=== PATIENT | female | born 1960 | race Hispanic/Latino ===

== ENCOUNTER 2022-07-24 13:39 | Inpatient (IN) | payer BC, OTHER ==
[~2022-07-24] VITALS: Ht 160 cm; Wt 80.6 kg
[2022-07-24 14:23] LABS: BASOPHILS % (AUTO) 0.5 % (0.0-5.0); EOSINOPHILS % (AUTO) 0.5 % (0.0-8.0); HEMATOCRIT 42.7 % (36-48); LYMPHOCYTES % (AUTO) 9.6 % (21.0-51.0); MEAN CORPUSCULAR HGB CONC 32.8 g/dL (32.0-36.0); MEAN CORPUSCULAR VOLUME 82.3 fL (79-99); MONOCYTES % (AUTO) 5.8 % (3.0-13.0); NEUTROPHILS % (AUTO) 83.3 % (40.0-77.0); PLATELET COUNT (AUTO) 313 K/uL (130-400); RED BLOOD CELL COUNT(AUTO) 5.19 MIL/uL (4.00-5.50); RED CELL DISTRIBUTION WIDTH 14.1 % (11.0-15.5); WHITE BLOOD COUNT (AUTO) 14.7 K/uL (4.8-10.8)
[2022-07-24 14:26] LABS: APPEARANCE,URINE SL CLOUDY (CLEAR); BILIRUBIN,URINE NEGATIVE (NEGATIVE); COLOR,URINE YELLOW (YELLOW); GLUCOSE, URINE (UA) NEGATIVE (NEGATIVE); KETONES,URINE NEGATIVE (NEGATIVE); LEUKOCYTE ESTERASE ,URINE MODERATE (NEGATIVE); NITRATE,URINE NEGATIVE (NEGATIVE); OCCULT BLOOD,URINE TRACE-INTACT (NEGATIVE); PROTEIN,URINE NEGATIVE (NEGATIVE); UROBILINOGEN,URINE 0.2 mg/dL (0.2-1.0)
[2022-07-24] MEDS ORDERED: 0.9%NACL 1000ML 1,000 ML IV ONE (14:30)
[2022-07-24] MEDS ORDERED: ACETAMINOPHEN 325 MG TAB PO ONE (14:30)
[2022-07-24 14:31] LABS: BACTERIA,URINE Rare /HPF (None Seen); SQUAMOUS EPITHELIAL CELL,UR Rare /HPF (0-2); TRANSITIONAL EPI CELLS,URINE Rare /HPF (None Seen)
[2022-07-24 14:37] LABS: CREATININE 0.9 mg/dL (0.5-1.5); TOTAL PROTEIN, SERUM 8.6 g/dL (6.0-8.3)
[2022-07-24 14:42] LABS: POTASSIUM 2.7 mmol/L (3.5-5.1)
[2022-07-24] MEDS ORDERED: KETOROLAC 30MG VIAL (30MG/ML) IVP ONE (15:30)
[2022-07-24] MEDS ORDERED: ZOSYN 3.375GM +NS 50ML IV ONE (15:30)
[2022-07-24] MEDS ORDERED: ONDANSETRON 4MG INJ IVP ONE (15:30)
[2022-07-24] MEDS ORDERED: POTASSIUM BICARB/CIT AC 25 MEQ TABLET.EFF PO ONE (15:30)
[2022-07-24] MEDS ORDERED: DiphenhydrAMINE HCL 50 MG/ML VIAL IV ONE (16:30)
[2022-07-24] MEDS ORDERED: FAMOTIDINE 20MG VIAL IV ONE (16:30)
[2022-07-24] MEDS ORDERED: IOHEXOL 350 MG/ML 100ML INFUS..BTL IV ONE (18:25)
[2022-07-24] MEDS ORDERED: FENTANYL CITRATE PF 50 MCG/1 ML 2ML VIAL IVP ONE (19:30)
[2022-07-24] MEDS ORDERED: CLONIDINE HCL 0.1 MG TABLET PO PRN (20:00)
[2022-07-24] MEDS ORDERED: LABETALOL 20MG SYG IV PRN (20:00)
[2022-07-24] MEDS ORDERED: LACTULOSE 20 GM/30 ML UDCUP PO PRN (20:00)
[2022-07-24] MEDS ORDERED: HYDRALAZINE 20MG/ML VIAL IV PRN (20:00)
[2022-07-24] MEDS ORDERED: TEMAZEPAM 15 MG CAPSULE PO PRN (20:00)
[2022-07-24] MEDS ORDERED: KETOROLAC 30MG VIAL (30MG/ML) IVP PRN (20:30)
[2022-07-24] MEDS: 0.9%NACL 1000ML 1,000 ML IV SCH (20:48)
[2022-07-24] MEDS: INSULIN HUMULIN R 100 UNIT/ML 3ML SQ SCH (21:00)
[2022-07-24] MEDS: METRONIDAZOLE 500MG/100ML BAG 100 ML IVPB SCH (22:07)
[2022-07-24 23:35] VITALS: BP 118/71
[2022-07-25] MEDS ORDERED: HYDR25TA PO (00:24)
[2022-07-25] MEDS ORDERED: LEVO75TA4 PO (00:24)
[2022-07-25] MEDS ORDERED: PSYL1CAP2 PO (00:24)
[2022-07-25] MEDS ORDERED: DOCU-116 PO (00:24)
[2022-07-25] MEDS: ACETAMINOPHEN 325 MG TAB PO PRN (02:17)
[2022-07-25 04:18] VITALS: BP 126/59
[2022-07-25] MEDS: METRONIDAZOLE 500MG/100ML BAG 100 ML IVPB SCH ×3 (05:04→20:52)
[2022-07-25 05:20] LABS: HEMATOCRIT 32.5 % (36-48); MEAN CORPUSCULAR HEMOGLOBIN 26.8 pg (27.0-33.0); MEAN CORPUSCULAR HGB CONC 32.6 g/dL (32.0-36.0); MEAN CORPUSCULAR VOLUME 82.3 fL (79-99); RED BLOOD CELL COUNT(AUTO) 3.95 MIL/uL (4.00-5.50); WHITE BLOOD COUNT (AUTO) 10.5 K/uL (4.8-10.8)
[2022-07-25] MEDS: INSULIN HUMULIN R 100 UNIT/ML 3ML SQ SCH ×4 (05:20→20:15)
[2022-07-25 05:34] LABS: MAGNESIUM 1.9 mg/dL (1.80-2.40); PHOSPHORUS 2.6 mg/dL (2.5-4.9)
[2022-07-25 05:50] LABS: POTASSIUM 2.7 mmol/L (3.5-5.1)
[2022-07-25] MEDS ORDERED: LIDOCAINE HCL-MPF 1% 2ML VIAL IV PRN (06:00)
[2022-07-25] MEDS: KCL 20 MEQ ERTAB PO PRN ×3 (06:11→13:12)
[2022-07-25] MEDS: POTASSIUM CHLORIDE 20MEQ/100ML 100 ML IV PRN ×3 (06:11→15:49)
[2022-07-25] MEDS ORDERED: KETOROLAC 15MG/ML VIAL (15MG/ML) IV PRN (06:30)
[2022-07-25] MEDS: ONDANSETRON 4MG INJ IVP PRN ×3 (07:32→23:11)
[2022-07-25 08:00] VITALS: BP 131/79
[2022-07-25] MEDS: ENOXAPARIN SODIUM 30 MG/0.3 ML SQ SCH (09:00)
[2022-07-25] MEDS: LEVOFLOXACIN 750 MG/D5W 150 ML 150 ML IV SCH (09:10)
[2022-07-25] MEDS: 0.9%NACL 1000ML 1,000 ML IV SCH ×2 (09:20→20:24)
[2022-07-25 11:38] VITALS: BP 146/78
[2022-07-25] MEDS: POTASSIUM CHLORIDE 10% ELIXIR 20 MEQ/15 ML UDCUP PO PRN ×2 (14:50→20:19)
[2022-07-25 16:00] VITALS: BP 120/84
[2022-07-25] MEDS ORDERED: LIDOCAINE HCL MPF 1% 5ML VIAL ONE ×2 (16:35→20:07)
[2022-07-25] MEDS ORDERED: PEG 3350/NA SULF,BICARB,CL/KCL 4000 ML SOLN PO SCH (17:00)
[2022-07-25 19:35] VITALS: BP 170/73
[2022-07-25] MEDS ORDERED: CA CARBONATE PO SCH (21:00)
[2022-07-25] MEDS ORDERED: PSYLLIUM HUSK PO SCH (21:00)
[2022-07-25 23:21] VITALS: BP 150/77
[2022-07-26] VITALS (11 sets, daily range): BP systolic 112–155; BP diastolic 65–84
[2022-07-26] MEDS: METRONIDAZOLE 500MG/100ML BAG 100 ML IVPB SCH (05:12)
[2022-07-26] MEDS: ONDANSETRON 4MG INJ IVP PRN ×2 (05:31→08:11)
[2022-07-26] MEDS: INSULIN HUMULIN R 100 UNIT/ML 3ML SQ SCH ×2 (05:31→11:30)
[2022-07-26 05:37] LABS: BASOPHILS % (AUTO) 0.5 % (0.0-5.0); HEMATOCRIT 37.3 % (36-48); LYMPHOCYTES % (AUTO) 19.5 % (21.0-51.0); MEAN CORPUSCULAR HEMOGLOBIN 26.6 pg (27.0-33.0); MEAN CORPUSCULAR HGB CONC 31.6 g/dL (32.0-36.0); MONOCYTES % (AUTO) 6.1 % (3.0-13.0); NEUTROPHILS % (AUTO) 72.5 % (40.0-77.0); PLATELET COUNT (AUTO) 320 K/uL (130-400); RED BLOOD CELL COUNT(AUTO) 4.44 MIL/uL (4.00-5.50); RED CELL DISTRIBUTION WIDTH 14.2 % (11.0-15.5); WHITE BLOOD COUNT (AUTO) 10.1 K/uL (4.8-10.8)
[2022-07-26 05:54] LABS: ALBUMIN 3.3 g/dL (3.5-5.0); POTASSIUM 3.3 mmol/L (3.5-5.1); TOTAL PROTEIN, SERUM 7.7 g/dL (6.0-8.3)
[2022-07-26] MEDS ORDERED: LEVOTHYROXINE 75 MCG TABLET PO SCH (06:30)
[2022-07-26] MEDS ORDERED: PROPOFOL 10 MG/ML 20ML VIAL IV ONE ×2 (07:00→07:24)
[2022-07-26] MEDS ORDERED: LIDOCAINE PF 100MG/5ML (2%) SYRINGE 5ML ONE (07:00)
[2022-07-26] MEDS: LEVOFLOXACIN 750 MG/D5W 150 ML 150 ML IV SCH (08:55)
[2022-07-26] MEDS: ENOXAPARIN SODIUM 30 MG/0.3 ML SQ SCH (09:00)
[2022-07-26] MEDS ORDERED: HYDROCHLOROTHIAZIDE 25 MG TABLET PO SCH (09:00)
[2022-07-26] MEDS ORDERED: DOCUSATE SODIUM 100 MG CAP PO SCH (09:00)
[2022-07-26] MEDS: POTASSIUM CHLORIDE 10% ELIXIR 20 MEQ/15 ML UDCUP PO PRN ×3 (09:07→14:28)
[2022-07-26] MEDS: 0.9%NACL 1000ML 1,000 ML IV SCH (12:00)
[2022-07-26] MEDS: ACETAMINOPHEN 325 MG TAB PO PRN (12:22)
[2022-07-26] MEDS ORDERED: LEVO750T39 PO (15:54)
[2022-07-26] MEDS ORDERED: POTA20PA32 PO (15:56)
== END 2022-07-26 17:20 | disposition home or self-care (01) | DRG 872 ==
LOC: EDH 13:39 → OBSVTOIN 20:02 → EDHIP 20:02 → 3AH 07-25 00:04
PROVIDERS: ADMIT Internal Medicine; ATTEND Internal Medicine
PROC: 0DBL8ZX Excision of Transverse Colon, Via Natural or Artificial Opening Endoscopic, Diagnostic (ICD-10-PCS; principal; 2022-07-26)
PROC: 0DBL8ZZ Excision of Transverse Colon, Via Natural or Artificial Opening Endoscopic (ICD-10-PCS; 2022-07-26)
DX: A41.9 Sepsis, unspecified organism (principal); K57.30 Diverticulosis of large intestine without perforation or abscess without bleeding; E03.9 Hypothyroidism, unspecified; E87.6 Hypokalemia; I10 Essential (primary) hypertension; Z87.19 Personal history of other diseases of the digestive system; Z88.5 Allergy status to narcotic agent; Z90.710 Acquired absence of both cervix and uterus; Z88.1 Allergy status to other antibiotic agents; Z88.8 Allergy status to other drugs, medicaments and biological substances
CPT/HCPCS: 36415; 45380; 45385; 71045; 74177; 76705; 80048; 80053; 81001; 82948; 83605; 83690; 83735; 84100; 84132; 84484; 85025; 85027; 87040; 87088; 87635; 93005; A4606; G0378; J1200; J1650; J1885; J1956; J2001; J2405; J2543; J2704; J3010; J3480; J3490; J7030; Q9967

== ENCOUNTER 2022-12-05 07:38 | Observation (INO) | payer OTHER ==
[~2022-12-05] VITALS: Ht 160 cm; Wt 75.5 kg
[~2022-12-05 07:38] MED LIST: DOCU-116 PO; HYDR25TA PO; LEVO750T39 PO; LEVO75TA4 PO; POTA20PA32 PO; PSYL1CAP2 PO
[2022-12-05 08:07] LABS: APPEARANCE,URINE CLEAR (CLEAR); BILIRUBIN,URINE NEGATIVE (NEGATIVE); COLOR,URINE YELLOW (YELLOW); GLUCOSE, URINE (UA) NEGATIVE (NEGATIVE); KETONES,URINE 40 mg/dL (NEGATIVE); LEUKOCYTE ESTERASE ,URINE 75 Leu/uL (NEGATIVE); NITRATE,URINE NEGATIVE (NEGATIVE); OCCULT BLOOD,URINE SMALL (NEGATIVE); PH,URINE 6.5 (5.0-8.0); PROTEIN,URINE 30 mg/dL (NEGATIVE); UROBILINOGEN,URINE 0.2 mg/dL (0.2-1.0)
[2022-12-05 08:08] LABS: BASOPHILS % (AUTO) 0.5 % (0.0-5.0); HEMATOCRIT 38.6 % (36-48); LYMPHOCYTES % (AUTO) 9.3 % (21.0-51.0); MEAN CORPUSCULAR HEMOGLOBIN 26.6 pg (27.0-33.0); MEAN CORPUSCULAR HGB CONC 33.7 g/dL (32.0-36.0); MEAN CORPUSCULAR VOLUME 78.9 fL (79-99); MONOCYTES % (AUTO) 7.2 % (3.0-13.0); NEUTROPHILS % (AUTO) 82.7 % (40.0-77.0); PLATELET COUNT (AUTO) 318 K/uL (130-400); RED BLOOD CELL COUNT(AUTO) 4.89 MIL/uL (4.00-5.50); WHITE BLOOD COUNT (AUTO) 11.5 K/uL (4.8-10.8)
[2022-12-05 08:15] LABS: MUCUS,URINE RARE LPF (None Seen); OTHER CASTS, URINE 1 /LPF (None Seen); SQUAMOUS EPITHELIAL CELL,UR FEW /HPF (0-2)
[2022-12-05 08:25] LABS: ALBUMIN 3.6 g/dL (3.5-5.0); CREATININE 0.9 mg/dL (0.5-1.5); TOTAL PROTEIN, SERUM 7.7 g/dL (6.0-8.3)
[2022-12-05] MEDS ORDERED: ONDANSETRON 4MG INJ IVP ONE (08:30)
[2022-12-05] MEDS ORDERED: 0.9%NACL 1000ML 1,000 ML IV ONE (09:00)
[2022-12-05] MEDS ORDERED: PROMETHAZINE HCL 25 MG/ML 1ML AMPULE IM ONE (09:00)
[2022-12-05] MEDS ORDERED: POTASSIUM BICARB/CIT AC 25 MEQ TABLET.EFF PO ONE (09:00)
[2022-12-05] MEDS ORDERED: IOHEXOL 350 MG/ML 100ML INFUS..BTL IV ONE (09:31)
[2022-12-05] MEDS ORDERED: LIDOCAINE HCL-MPF 1% 2ML VIAL IV PRN (10:30)
[2022-12-05] MEDS ORDERED: ALBUTEROL 0.083% 2.5 MG/3 ML INH IH PRN (10:30)
[2022-12-05] MEDS ORDERED: POTASSIUM CHLORIDE 10MEQ/100ML 100 ML IV PRN (10:30)
[2022-12-05] MEDS ORDERED: ONDANSETRON 4MG INJ IVP PRN (10:30)
[2022-12-05] MEDS ORDERED: ACETAMINOPHEN 650 MG SUPPOSITORY RC PRN (10:30)
[2022-12-05] MEDS ORDERED: DOCUSATE SODIUM 100 MG CAP PO PRN (10:30)
[2022-12-05] MEDS ORDERED: LACTULOSE 20 GM/30 ML UDCUP PO PRN (10:30)
[2022-12-05] MEDS: LACTATED RINGERS 1000ML 1,000 ML IV SCH ×2 (10:42→19:18)
[2022-12-05] MEDS ORDERED: OMEP20TA20 PO (10:44)
[2022-12-05] MEDS: INSULIN HUMULIN R 100 UNIT/ML 3ML SQ SCH ×3 (11:30→21:00)
[2022-12-05 13:03] VITALS: BP 158/89
[2022-12-05] MEDS ORDERED: METRONIDAZOLE 500MG/100ML BAG 100 ML IVPB SCH ×2 (14:00)
[2022-12-05] MEDS ORDERED: KCL 20 MEQ ERTAB PO PRN (14:00)
[2022-12-05] MEDS ORDERED: POTASSIUM CHLORIDE 20MEQ/100ML 100 ML IV PRN (14:00)
[2022-12-05 16:00] VITALS: BP 125/69
[2022-12-05] MEDS: POTASSIUM CHLORIDE 10% ELIXIR 20 MEQ/15 ML UDCUP PO PRN ×3 (17:20→23:50)
[2022-12-05] MEDS: ACETAMINOPHEN 325 MG TAB PO PRN (17:20)
[2022-12-05] MEDS: MEROPENEM 1 GM VIAL IVPB SCH ×2 (17:20→20:26)
[2022-12-05] MEDS ORDERED: PHARMACY COMMUNICATION MISC SCH (19:00)
[2022-12-05] MEDS: PROMETHAZINE HCL 25 MG/ML 1ML AMPULE IM PRN (20:11)
[2022-12-05] MEDS: FAMOTIDINE 20MG VIAL IV SCH (20:16)
[2022-12-05 21:14] VITALS: BP 136/72
[2022-12-06 00:06] VITALS: BP 120/71
[2022-12-06] MEDS: LACTATED RINGERS 1000ML 1,000 ML IV SCH (04:06)
[2022-12-06] MEDS: PROMETHAZINE HCL 25 MG/ML 1ML AMPULE IM PRN ×2 (04:14→13:17)
[2022-12-06] MEDS: MEROPENEM 1 GM VIAL IVPB SCH ×3 (04:38→20:46)
[2022-12-06 04:41] VITALS: BP 121/66
[2022-12-06 05:11] LABS: MEAN CORPUSCULAR HEMOGLOBIN 26.5 pg (27.0-33.0); MEAN CORPUSCULAR HGB CONC 32.4 g/dL (32.0-36.0); MEAN CORPUSCULAR VOLUME 81.9 fL (79-99); RED BLOOD CELL COUNT(AUTO) 4.15 MIL/uL (4.00-5.50); RED CELL DISTRIBUTION WIDTH 14.6 % (11.0-15.5); WHITE BLOOD COUNT (AUTO) 6.8 K/uL (4.8-10.8)
[2022-12-06 05:33] LABS: CREATININE 0.8 mg/dL (0.5-1.5); PHOSPHORUS 2.4 mg/dL (2.5-4.9); POTASSIUM 3.7 mmol/L (3.5-5.1); THYROID STIMULATING HORMONE 3.02 uIU/mL (0.36-3.74)
[2022-12-06] MEDS: INSULIN HUMULIN R 100 UNIT/ML 3ML SQ SCH ×2 (05:56→11:30)
[2022-12-06] MEDS: LEVOTHYROXINE 75 MCG TABLET PO SCH (06:30)
[2022-12-06 08:20] VITALS: BP 141/58
[2022-12-06] MEDS ORDERED: ENOXAPARIN SODIUM 40 MG/0.4 ML SYRINGE SQ SCH (09:00)
[2022-12-06] MEDS: HYDROCHLOROTHIAZIDE 25 MG TABLET PO SCH (09:00)
[2022-12-06] MEDS: FAMOTIDINE 20MG VIAL IV SCH (09:00)
[2022-12-06] MEDS: DOCUSATE SODIUM 100 MG CAP PO SCH (09:35)
[2022-12-06 12:00] VITALS: BP 123/78
[2022-12-06 17:07] VITALS: BP 141/96
[2022-12-06 20:00] VITALS: BP 135/72
[2022-12-06] MEDS: FAMOTIDINE 20MG TAB PO SCH (20:17)
[2022-12-07] VITALS: BP 142/71
[2022-12-07 03:49] VITALS: BP 138/72
[2022-12-07] MEDS: ACETAMINOPHEN 325 MG TAB PO PRN (04:21)
[2022-12-07] MEDS: PROMETHAZINE HCL 25 MG/ML 1ML AMPULE IM PRN ×2 (04:30→11:18)
[2022-12-07 04:36] LABS: HEMATOCRIT 34.6 % (36-48); MEAN CORPUSCULAR HEMOGLOBIN 26.2 pg (27.0-33.0); MEAN CORPUSCULAR HGB CONC 31.5 g/dL (32.0-36.0); MEAN CORPUSCULAR VOLUME 83.2 fL (79-99); RED BLOOD CELL COUNT(AUTO) 4.16 MIL/uL (4.00-5.50); RED CELL DISTRIBUTION WIDTH 14.7 % (11.0-15.5); WHITE BLOOD COUNT (AUTO) 5.9 K/uL (4.8-10.8)
[2022-12-07] MEDS: MEROPENEM 1 GM VIAL IVPB SCH ×2 (04:54→11:18)
[2022-12-07 05:35] LABS: CREATININE 0.7 mg/dL (0.5-1.5); MAGNESIUM 1.9 mg/dL (1.80-2.40); POTASSIUM 3.9 mmol/L (3.5-5.1)
[2022-12-07] MEDS: LEVOTHYROXINE 75 MCG TABLET PO SCH (06:03)
[2022-12-07 08:00] VITALS: BP 145/90
[2022-12-07] MEDS: HYDROCHLOROTHIAZIDE 25 MG TABLET PO SCH (08:31)
[2022-12-07] MEDS: FAMOTIDINE 20MG TAB PO SCH (08:31)
[2022-12-07] MEDS: DOCUSATE SODIUM 100 MG CAP PO SCH ×2 (08:31→09:00)
[2022-12-07 11:55] VITALS: BP 163/86
[2022-12-07] MEDS ORDERED: LOPERAMIDE HCL 2 MG CAP PO PRN (12:00)
[2022-12-07 16:00] VITALS: BP 150/97
== END 2022-12-07 16:30 | disposition home or self-care (01) ==
LOC: EDH 07:38 → EDHIP 10:24 → 4BH 13:00
PROVIDERS: ADMIT Internal Medicine Critical Care Medicine; ATTEND Internal Medicine Critical Care Medicine
DX: K57.32 Diverticulitis of large intestine without perforation or abscess without bleeding (principal); D72.829 Elevated white blood cell count, unspecified; E87.6 Hypokalemia; I10 Essential (primary) hypertension; E03.9 Hypothyroidism, unspecified; E86.0 Dehydration; E87.1 Hypo-osmolality and hyponatremia; E66.9 Obesity, unspecified; Z90.710 Acquired absence of both cervix and uterus; Z79.899 Other long term (current) drug therapy
CPT/HCPCS: 96374; 96372 ×3; 96361 ×2; 96375 ×2; 99285; 83735 ×2; 80053; 83690; 85025; 87088; 82948 ×4; 81001; 36415 ×3; 74177; 96376 ×2; 84443; 84100; 80048 ×2; 85027 ×2; G0378 ×52; J7120 ×2; J3490; J2550 ×3; J2405; J2185 ×6; Q9967; J1650